=== PATIENT | female | born 1965 | race African-American/Black ===

== ENCOUNTER 2016-11-24 16:57 | Emergency (ER) | payer OTHER ==
[~2016-11-24] VITALS: Ht 162.6 cm; Wt 73.9 kg
--- NOTE | 2016-11-24 18:34 | EKG ---
[facility] [address] [place] [address] Test Date: 2016-11-24 Test Time: 17:43:01 Pat Name: ESTEFANIA HAILE Department: Room: Gender: F Restaurant Service Manager: : 1965 Requested By: OSBALDO LUONG Order Number: [id number] Reading MD: Leoncio Garcia Measurements Intervals [place] Rate: 92 P: 16 AL: 144 QRS: 16 QRSD: 84 T: 32 QT: 342 QTc: 428 Interpretive Statements SINUS RHYTHM QRS(T) CONTOUR ABNORMALITY CANNOT RULE OUT ANTEROSEPTAL MYOCARDIAL DAMAGE RI6.01 Unconfirmed report Compared to ECG 07/06/2015 14:30:15 No significant changes Electronically Signed On 11-25-2016 15:05:45 CDT by Leoncio Garcia
[2016-11-24 18:41] LABS: BASO # 0.1 x10^3/uL (0.0-0.2); BASO % 2 % (0-3); EOS % 1 % (0-3); HEMATOCRIT 35.7 % (36.0-47.0); HEMOGLOBIN 11.7 g/dL (12.0-15.5); LYMPH % 32 % (24-48); MEAN CORPUSCULAR HEMOGLOBIN 28 pg (25-35); MEAN CORPUSCULAR HGB CONC 33 g/dL (31-37); MEAN CORPUSCULAR VOLUME 86 fL (79-100); MONO % 7 % (0-9); NEUT % 59 % (31-73); PLATELET COUNT 315 x10^3/uL (140-400); RED BLOOD COUNT 4.14 x10^6/uL (3.50-5.40); RED CELL DISTRIBUTION WIDTH 13.7 % (11.5-14.5); WHITE BLOOD COUNT 9.4 x10^3/uL (4.0-11.0)
[2016-11-24 18:59] LABS: CALCIUM 9.9 mg/dL (8.5-10.1); CREATININE 0.9 mg/dL (0.6-1.0); GFR 79.3; POTASSIUM 3.6 mmol/L (3.5-5.1)
[2016-11-24] MEDS ORDERED: IV NORMAL SALINE 1000ML BAG 1,000 ML IV SCH (19:00)
[2016-11-24] MEDS ORDERED: hydrALAZINE 20 MG/ML VIAL. IVP ONE (19:00)
[2016-11-24 19:04] LABS: ALBUMIN 4.3 g/dL (3.4-5.0); ALBUMIN/GLOBULIN RATIO 0.9 (1.0-1.7); MAGNESIUM 1.9 mg/dL (1.8-2.4); TOTAL BILIRUBIN 0.2 mg/dL (0.2-1.0); TOTAL PROTEIN 8.9 g/dL (6.4-8.2)
[2016-11-24 19:08] LABS: BILIRUBIN,URINE NEGATIVE (NEG); GLUCOSE,URINE NEGATIVE (NEG); NITRITE,URINE NEGATIVE (NEG); PH,URINE 5.5; PROTEIN,URINE NEGATIVE (NEG-TRACE); UROBILINOGEN,URINE 0.2 mg/dL (0.2 mg/dL)
[2016-11-24 19:28] LABS: BACTERIA,URINE FEW /HPF (0-FEW); RBC,URINE 0 /HPF (0-2); SQUAMOUS EPITHELIAL CELL,UR FEW /LPF
[2016-11-24 20:34] VITALS: BP 170/82
[2016-11-24] MEDS ORDERED: TRAM50TA PO (20:37)
--- NOTE | 2016-11-24 20:37 | PHYS DOC ---
Past Medical History Past Medical History: Arthritis, Diabetes-Type II, Hypertension Additional Past Medical Histor: Sinus trouble, tension headaches Past Surgical History: No Surgical History Additional Past Surgical Histo: Fibroid cysts taken from ovaries Alcohol Use: None Drug Use: None Adult General Chief Complaint Chief Complaint: DIZZY/LIGHT HEADED HPI HPI Patient is a 51 year old female who presents with complaint of dizziness, headache, and high blood pressure. The patient is a difficult historian as she originally stated that she was having trouble for the past 3 days during triage , however patient states that this has been going on for 2 weeks. Patient states that she has also been having difficulty with dental pain and has been following with a dentist for treatment. Patient states that she was placed on clindamycin and hydrocodone 10 mg. Patient stated that she was having difficulty with "hallucinations" and thus stopped the antibiotic as she thought this was causing her symptoms. The patient states that she is on lisinopril and amlodipine at home for treatment of high blood pressure. Patient follows a Dr. Pressley for primary care. Patient has not missed any doses of her medication. Patient is concerned because her blood pressure has been running high. Patient rates her pain currently as 8 out of 10 in her and 5 out of 10 in her head. Patient denies any unilateral weakness, vision changes, vomiting. Patient states that she has had some numbness in her right upper extremity after accidentally hitting her shoulder up against a door but denies any loss of use of the extremity. Review of Systems Review of Systems Constitutional: Lightheadedness, denies fever or chills [] Eyes: Denies change in visual acuity, redness, or eye pain [] HENT: Denies nasal congestion or sore throat [] Respiratory: Denies cough or shortness of breath [] Cardiovascular: Denies chest pain or edema [] GI: Denies abdominal pain, nausea, vomiting, bloody stools or diarrhea [] : Denies dysuria or hematuria [] Musculoskeletal: Denies back pain or joint pain [] Integument: Denies rash or skin lesions [] Neurologic: Headache, denies focal weakness [] Current Medications Current Medications Current Medications Medications (Trade) Dose Ordered Sig/Stephan Start Time Stop Time Status Last Admin Dose Admin Diazepam (Valium) 2 mg 1X ONCE 11/24/16 19:00 11/24/16 19:01 DC 11/24/16 19:19 2 MG Hydralazine HCl (Apresoline) 10 mg 1X ONCE 11/24/16 19:00 11/24/16 19:01 DC 11/24/16 19:16 10 MG Sodium Chloride 1,000 ml @ 1,000 mls/hr Q1H 11/24/16 19:00 11/24/16 19:59 DC 11/24/16 19:15 1,000 MLS/HR Allergies Allergies Allergies Coded Allergies Type Severity Reaction Last Updated Verified ibuprofen Allergy Intermediate Rash 07/06/15 Yes Physical Exam Physical Exam Constitutional: Alert, afebrile, no acute distress. [] HENT: Normocephalic, atraumatic, bilateral external ears normal, oropharynx moist, no oral exudates, nose normal. [] Eyes: PERRLA, EOMI, conjunctiva normal, no discharge. [] Neck: Normal range of motion, no tenderness, supple, no stridor. [] Cardiovascular:Heart rate regular rhythm, no murmur [] Lungs & Thorax: Bilateral breath sounds clear to auscultation [] Abdomen: Bowel sounds normal, soft, no tenderness, no masses, no pulsatile masses. [] Skin: Warm, dry, no erythema, no rash. [] Back: No tenderness, no CVA tenderness. [] Extremities: No tenderness, no cyanosis, no clubbing, ROM intact, no edema. [] Neurologic: Alert and oriented X 3, normal motor function, normal sensory function, no focal deficits noted. [] Current Patient Data Vital Signs Vital Signs Date Time Temp Pulse Resp B/P (MAP) Pulse Ox O2 Delivery O2 Flow Rate FiO2 11/24/16 20:34 106 170/82 (111) 99 Room Air 11/24/16 17:40 98.0 22 98.0 Lab Values Laboratory Tests Test 11/24/16 17:52 11/24/16 18:30 11/24/16 18:55 Glucose (Fingerstick) 108 mg/dL (70-99) H White Blood Count 9.4 x10^3/uL (4.0-11.0) Red Blood Count 4.14 x10^6/uL (3.50-5.40) Hemoglobin 11.7 g/dL (12.0-15.5) L Hematocrit 35.7 % (36.0-47.0) L Mean Corpuscular Volume 86 fL (79-100) Mean Corpuscular Hemoglobin 28 pg (25-35) Mean Corpuscular Hemoglobin Concent 33 g/dL (31-37) Red Cell Distribution Width 13.7 % (11.5-14.5) Platelet Count 315 x10^3/uL (140-400) Neutrophils (%) (Auto) 59 % (31-73) Lymphocytes (%) (Auto) 32 % (24-48) Monocytes (%) (Auto) 7 % (0-9) Eosinophils (%) (Auto) 1 % (0-3) Basophils (%) (Auto) 2 % (0-3) Neutrophils # (Auto) 5.5 x10^3uL (1.8-7.7) Lymphocytes # (Auto) 3.0 x10^3/uL (1.0-4.8) Monocytes # (Auto) 0.6 x10^3/uL (0.0-1.1) Eosinophils # (Auto) 0.1 x10^3/uL (0.0-0.7) Basophils # (Auto) 0.1 x10^3/uL (0.0-0.2) Sodium Level 140 mmol/L (136-145) Potassium Level 3.6 mmol/L (3.5-5.1) Chloride Level 102 mmol/L (98-107) Carbon Dioxide Level 24 mmol/L (21-32) Anion Gap 14 (6-14) Blood Urea Nitrogen 8 mg/dL (7-20) Creatinine 0.9 mg/dL (0.6-1.0) Estimated GFR (Cockcroft-Gault) 79.3 BUN/Creatinine Ratio 9 (6-20) Glucose Level 163 mg/dL (70-99) H Calcium Level 9.9 mg/dL (8.5-10.1) Magnesium Level 1.9 mg/dL (1.8-2.4) Total Bilirubin 0.2 mg/dL (0.2-1.0) Aspartate Amino Transferase (AST) 22 U/L (15-37) Alanine Aminotransferase (ALT) 33 U/L (14-59) Alkaline Phosphatase 76 U/L (46-116) Total Protein 8.9 g/dL (6.4-8.2) H Albumin 4.3 g/dL (3.4-5.0) Albumin/Globulin Ratio 0.9 (1.0-1.7) L Urine Collection Type Void Urine Color Yellow Urine Clarity Clear Urine pH 5.5 Urine Specific [place] <=1.005 Urine Protein Negative mg/dL (NEG-TRACE) Urine Glucose (UA) Negative mg/dL (NEG) Urine Ketones (Stick) Negative mg/dL (NEG) Urine Blood Negative (NEG) Urine Nitrite Negative (NEG) Urine Bilirubin Negative (NEG) Urine Urobilinogen Dipstick 0.2 mg/dL (0.2 mg/dL) Urine Leukocyte Esterase Trace (NEG) Urine RBC 0 /HPF (0-2) Urine WBC 1-4 /HPF (0-4) Urine Squamous Epithelial Cells Few /LPF Urine Bacteria Few /HPF (0-FEW) Urine Mucus Slight /LPF Laboratory Tests 11/24/16 18:30 Laboratory Tests 11/24/16 18:30 EKG EKG Interpreted by me: Heart rate 92, sinus rhythm, normal intervals, normal axis, no acute ST/T-wave abnormalities present [] Radiology/Procedures Radiology/Procedures One view AP chest x-ray interpreted by me: No infiltrate, no effusions, normal cardiac silhouette [] Course & Med Decision Making Course & Med Decision Making Pertinent Labs and Imaging studies reviewed. (See chart for details) Patient was given Valium and hydralazine in the emergency department. On reevaluation, patient's blood pressure has improved to 160 systolic and patient states that she feels better at this time. The patient shows no evidence of gingival or mandibular swelling. After speaking with the patient, I explained that I suspected part of her adverse symptoms to medication may have been related to hydrocodone instead of clindamycin as she was on high-dose hydrocodone 10 mg. The patient stated that this did make sense to her. After discussing with her we will prescribe tramadol to help with patient's dental pain and advised to continue follow-up with her dentist. Also recommended follow -up in the next 3 days with the patient's primary doctor for reevaluation of blood pressure. Advised return emergency department for any worsening symptoms. Patient voiced understanding and in agreement with treatment plan. Dragon Disclaimer Dragon Disclaimer This electronic medical record was generated, in whole or in part, using a voice recognition dictation system. Departure Departure Impression: Primary Impression: Accelerated essential hypertension Additional Impression: Pain, dental Disposition: HOME, SELF-CARE Condition: IMPROVED Referrals: JEYSON PRESSLEY MD (PCP) Patient Instructions: Dental Pain, Hypertension Additional Instructions: Follow-up with Dr. Pressley in the next 3-5 days for reevaluation. Return to the emergency department for any worsening symptoms. Scripts Tramadol Hcl (TRAMADOL HCL) 50 Mg Tablet 1 TAB PO PRN Q6HRS Y for PAIN, #30 TAB Prov: OSBALDO LUONG MD 11/24/16 Problem Qualifiers OSBALDO LUONG MD Nov 24, 2016 20:37
--- NOTE | 2016-11-25 09:31 | RAD ---
Indication dizzy and weakness. Protocol study. A single view of the chest was obtained. No prior plain film imaging of the chest is available. The heart and pulmonary vessels appear normal. The lungs are clear. There is no pleural fluid or pneumothorax. Inspiratory effort is not optimal. The visualized bony structures appear grossly intact. IMPRESSION:: No acute or focal process is seen in the chest
== END 2016-11-24 20:59 | disposition home or self-care (01) ==
LOC: ER 16:57
DX: I10 Essential (primary) hypertension (principal); K08.89 Other specified disorders of teeth and supporting structures; R20.0 Anesthesia of skin; E11.9 Type 2 diabetes mellitus without complications; M19.90 Unspecified osteoarthritis, unspecified site; Z88.6 Allergy status to analgesic agent; Z79.899 Other long term (current) drug therapy
CPT/HCPCS: 36415; 71010; 80053; 81001; 82962; 83735; 85027; 87086; 93005; 96361; 96374; 96375; 99285; J0360; J3360; J7030

== ENCOUNTER 2018-02-27 10:19 | Emergency (ER) | payer OTHER ==
[~2018-02-27] VITALS: Ht 162.6 cm; Wt 70.3 kg
[~2018-02-27 10:19] MED LIST: TRAM50TA PO
[2018-02-27 10:30] VITALS: BP 196/95
--- NOTE | 2018-02-27 11:13 | PHYS DOC ---
Past Medical History Past Medical History: Arthritis, Diabetes-Type II, Hypertension, Other Additional Past Medical Histor: Sinus trouble, tension headaches Past Surgical History: Other Additional Past Surgical Histo: Fibroid cysts taken from ovaries Alcohol Use: None Drug Use: None Adult General Chief Complaint Chief Complaint: MULTIPLE COMPLAINTS [facility] Patient is a 52 year old female who presents with multiple complaints. The patient states that her primary complaint today is for dental pain. She has been diagnosed with gum disease and is currently being treated. She states that she did not take the clindamycin that she was prescribed as it made her ill. She also has complaints of arthritis for which she takes Naprosyn and has been having constipation for which she has been told by her primary care provider to take MiraLAX. She states the MiraLAX is not working. I encouraged her to increase her dose from once a day to 3 times a day until she is able to have normal bowel movements. If the MiraLAX does not induce bowel movement she should graduate up to something like magnesium citrate. She does have a follow- up appointment scheduled with her dentist. She states that she has had work done already by [facility] and plans on going back there for continued dental therapy. Review of Systems Review of Systems Constitutional: Denies fever or chills [] Eyes: Denies change in visual acuity, redness, or eye pain [] HENT: See history of present illness Respiratory: Denies cough or shortness of breath [] Cardiovascular: No additional information not addressed in [facility] [] GI: See history of present illness : Denies dysuria or hematuria [] Musculoskeletal: See history of present illness Integument: Denies rash or skin lesions [] Neurologic: Denies headache, focal weakness or sensory changes [] Endocrine: Denies polyuria or polydipsia [] All other systems were reviewed and found to be within normal limits, except as documented in this note. Allergies Allergies Allergies Coded Allergies Type Severity Reaction Last Updated Verified ibuprofen Allergy Intermediate Rash 07/06/15 Yes Physical Exam Physical Exam Constitutional: Well developed, well nourished, no acute distress, non-toxic appearance. [] HENT: Normocephalic, atraumatic, bilateral external ears normal, mild erythema to gumline, no oral exudates, nose normal. [] Eyes: PERRLA, EOMI, conjunctiva normal, no discharge. [] Neck: Normal range of motion, no tenderness, supple, no stridor. [] Cardiovascular:Heart rate regular rhythm, no murmur [] Lungs & Thorax: Bilateral breath sounds clear to auscultation [] Abdomen: Bowel sounds normal, soft, no tenderness, no masses, no pulsatile masses. [] Skin: Warm, dry, no erythema, no rash. [] Back: No tenderness, no CVA tenderness. [] Extremities: No tenderness, no cyanosis, no clubbing, ROM intact, no edema. [] Neurologic: Alert and oriented X 3, normal motor function, normal sensory function, no focal deficits noted. [] Psychologic: Affect normal, judgement normal, mood normal. [] Current Patient Data Vital Signs Vital Signs Date Time Temp Pulse Resp B/P (MAP) Pulse Ox O2 Delivery O2 Flow Rate FiO2 02/27/18 10:30 98.0 87 18 196/95 (128) 99 Room Air 98.0 EKG EKG [] Radiology/Procedures Radiology/Procedures [] Course & Med Decision Making Course & Med Decision Making Pertinent Labs and Imaging studies reviewed. (See chart for details) []The patient and I had a long conversation about following up with her primary care provider if her current therapy is not working. She states that she will talk to Dr. Pressley about her arthritis and her constipation. She has been switched to amoxicillin since the clindamycin was making her ill. She is to follow-up with the dentist. She is in agreement with this plan. Dragon Disclaimer Dragon Disclaimer This electronic medical record was generated, in whole or in part, using a voice recognition dictation system. Departure Departure Impression: Primary Impression: Dental infection Disposition: 01 HOME, SELF-CARE Condition: STABLE Referrals: JEYSON PRESSLEY MD (PCP) Patient Instructions: Dental Pain Additional Instructions: Follow up with your dentist to continue your treatment. Follow-up with your primary care provider for your other multiple healthcare needs such as arthritis and constipation. If worsening return to the emergency department. Take the antibiotic as directed. Continue your at home medications. Scripts Amoxicillin (AMOXICILLIN) 875 Mg Tablet 1 TAB PO BID for infection, #20 TAB Prov: BHARGAV DAVIS APRN 02/27/18 BHARGAV DAVIS APRN Feb 27, 2018 11:13
[2018-02-27] MEDS ORDERED: AMOX875T PO (11:30)
== END 2018-02-27 11:22 | disposition home or self-care (01) ==
LOC: ER 10:19
DX: K04.7 Periapical abscess without sinus (principal); M19.90 Unspecified osteoarthritis, unspecified site; E11.9 Type 2 diabetes mellitus without complications; I10 Essential (primary) hypertension; K59.00 Constipation, unspecified; Z88.6 Allergy status to analgesic agent
CPT/HCPCS: 99283

== ENCOUNTER 2018-11-03 14:38 | Emergency (ER) | payer MEDICAID, OTHER ==
[~2018-11-03] VITALS: Ht 162.6 cm; Wt 77.1 kg
[~2018-11-03 14:38] MED LIST changes: +AMOX875T PO
[2018-11-03 15:34] LABS: BILIRUBIN,URINE NEGATIVE (NEG); CLARITY,URINE CLOUDY; COLOR,URINE YELLOW; NITRITE,URINE POSITIVE (NEG); PH,URINE 5.5; PROTEIN,URINE 100 mg/dL (NEG-TRACE); UROBILINOGEN,URINE 0.2 mg/dL (0.2 mg/dL)
--- NOTE | 2018-11-03 15:38 | RAD ---
Examination: Supine and upright views of the abdomen HISTORY: History of constipation COMPARISON: None available. FINDINGS: Large amount of stool identified in the colon particularly in the right colon. Nonspecific bowel gas pattern. IMPRESSION: Large amount of stool identified in the colon. Correlate for constipation. Electronically signed by: Mack Valentin MD (11/03/2018 3:35 PM) [facility]
[2018-11-03 15:39] LABS: BARBITURATES NEG (NEG); BENZODIAZEPINES NEG (NEG); CANNABINOIDS NEG (NEG); COCAINE NEG (NEG); METHADONE NEG (NEG); OPIATES NEG (NEG); PHENCYCLIDINE NEG (NEG)
[2018-11-03 15:42] LABS: AMPHETAMINE/METHAMPHETAMINE NEG (NEG)
[2018-11-03 15:44] LABS: BACTERIA,URINE MANY /HPF (0-FEW); SQUAMOUS EPITHELIAL CELL,UR FEW /LPF; WBC,URINE TNTC /HPF (0-4)
[2018-11-03] MEDS ORDERED: MAGNESIUM CITRATE 296 ML SOLUTION. PO ONE (16:00)
[2018-11-03] MEDS ORDERED: ONDA4TAB7 PO (16:14)
[2018-11-03] MEDS ORDERED: SULF1TAB24 PO (16:14)
--- NOTE | 2018-11-03 16:15 | PHYS DOC ---
Past Medical History Past Medical History: Arthritis, Diabetes-Type II, Hypertension, Other Additional Past Medical Histor: Sinus trouble, tension headaches Past Surgical History: Other Additional Past Surgical Histo: Fibroid cysts taken from ovaries Alcohol Use: None Drug Use: None Adult General Chief Complaint Chief Complaint: ABDOMINAL PAIN HPI HPI Patient is a 53 year old female with a history of hypertension, diabetes type 2, who presents to the ED today complaining of constipation for 2 days. Patient states she had a bowel movement this morning but it was hard. She tried taking Dulcolax but she vomited. She states she has history of chronic constipation, sh e states she is scheduled to have a colonoscopy in 2 weeks. Review of Systems Review of Systems Constitutional: Denies fever or chills [] Eyes: Denies change in visual acuity, redness, or eye pain [] HENT: Denies nasal congestion or sore throat [] Respiratory: Denies cough or shortness of breath [] Cardiovascular: No additional information not addressed in HPI [] GI: Reports constipation. Reports vomiting. Denies, bloody stools or diarrhea [] : Denies dysuria or hematuria [] Musculoskeletal: Denies back pain or joint pain [] Integument: Denies rash or skin lesions [] Neurologic: Denies headache, focal weakness or sensory changes [] All other systems were reviewed and found to be within normal limits, except as documented in this note. Current Medications Current Medications Current Medications Medications (Trade) Dose Ordered Sig/[facility] Start Time Stop Time Status Last Admin Dose Admin Magnesium Citrate (Citroma) 296 ml 1X ONCE 11/03/18 16:00 11/03/18 16:01 DC Allergies Allergies Allergies Coded Allergies Type Severity Reaction Last Updated Verified ibuprofen Allergy Intermediate Rash 07/06/15 Yes Physical Exam Physical Exam Constitutional: Well developed, well nourished, no acute distress, non-toxic appearance. [] HENT: Normocephalic, atraumatic, bilateral external ears normal, oropharynx moist, no oral exudates, nose normal. [] Eyes: PERRLA, EOMI, conjunctiva normal, no discharge. [] Neck: Normal range of motion, no tenderness, supple, no stridor. [] Cardiovascular:Heart rate regular rhythm, no murmur [] Lungs & Thorax: Bilateral breath sounds clear to auscultation [] Abdomen: Bowel sounds normal, soft, no tenderness, no masses, no pulsatile masses. [] Skin: Warm, dry, no erythema, no rash. [] Back: No tenderness, no CVA tenderness. [] Extremities: No tenderness, no cyanosis, no clubbing, ROM intact, no edema. [] Neurologic: Alert and oriented X 3, normal motor function, normal sensory function, no focal deficits noted. [] Psychologic: Affect normal, judgement normal, mood normal. [] Current Patient Data Vital Signs Vital Signs Date Time Temp Pulse Resp B/P (MAP) Pulse Ox O2 Delivery O2 Flow Rate FiO2 11/03/18 14:50 98.6 104 18 143/87 (105) 97 Room Air 98.6 Lab Values Laboratory Tests Test 11/03/18 14:42 Urine Collection Type Unknown Urine Color Yellow Urine Clarity Cloudy Urine pH 5.5 Urine Specific [place] 1.015 Urine Protein 100 mg/dL (NEG-TRACE) Urine Glucose (UA) Negative mg/dL (NEG) Urine Ketones (Stick) Negative mg/dL (NEG) Urine Blood Small (NEG) Urine Nitrite Positive (NEG) Urine Bilirubin Negative (NEG) Urine Urobilinogen Dipstick 0.2 mg/dL (0.2 mg/dL) Urine Leukocyte Esterase Large (NEG) Urine RBC 6-10 /HPF (0-2) Urine WBC Tntc /HPF (0-4) Urine Squamous Epithelial Cells Few /LPF Urine Bacteria Many /HPF (0-FEW) Urine Mucus Marked /LPF Urine Opiates Screen Neg (NEG) Urine Methadone Screen Neg (NEG) Urine Barbiturates Neg (NEG) Urine Phencyclidine Screen Neg (NEG) Urine Amphetamine/Methamphetamine Neg (NEG) Urine Benzodiazepines Screen Neg (NEG) Urine Cocaine Screen Neg (NEG) Urine Cannabinoids Screen Neg (NEG) Urine Ethyl Alcohol Neg (NEG) EKG EKG [] Radiology/Procedures Radiology/Procedures []PROCEDURE: ABDOMEN SUPINE & UPRIGHT Examination: Supine and upright views of the abdomen HISTORY: History of constipation COMPARISON: None available. FINDINGS: Large amount of stool identified in the colon particularly in the right colon. Nonspecific bowel gas pattern. IMPRESSION: Large amount of stool identified in the colon. Correlate for constipation. Electronically signed by: Mack Valentin MD (11/03/2018 3:35 PM) [facility] DICTATED and SIGNED BY: MCAK VALENTIN MD DATE: 11/03/18 1535 Course & Med Decision Making Course & Med Decision Making Pertinent Labs and Imaging studies reviewed. (See chart for details) This is a 53-year-old female patient presenting to the ED today complaining of constipation for 2 days, history of chronic constipation. Tried Dulcolax but vomited at home. Abdominal x-ray noted for-Large amount of stool identified in the colon. Patient was given mag citrate in the ED, discharged to home instructed to take mag citrate every day until he has a bowel movement. MiraLAX also recommended. Zofran rx provided. She has a colonoscopy in 2 weeks. Follow-up with her own GI doctor in the course of this week or next week. Urine noted for UTI, discharged on Bactrim. Dragon Disclaimer Dragon Disclaimer This electronic medical record was generated, in whole or in part, using a voice recognition dictation system. Departure Departure Impression: Primary Impression: Constipation Disposition: HOME, SELF-CARE Condition: STABLE Referrals: JEYSON RAMIREZ MD (PCP) Follow-up in the course of this week, also follow-up with your GI doctor. Patient Instructions: Constipation, Adult Additional Instructions: You were evaluated in the emergency room for constipation. We recommend you increase your dietary fiber intake as well as a water intake. Take magnesium citrate every daily for three days, stop when you have a normal bowel movement. Take MiraLAX every day to prevent constipation. Scripts Ondansetron Hcl (ZOFRAN) 4 Mg Tablet 1 TAB PO Q6HRS, #20 TAB Prov: ENOC RUFFIN APRN 11/03/18 Sulfamethoxazole/Trimethoprim (BACTRIM DS TABLET) 1 Each Tablet 1 TAB PO BID, #14 TAB Prov: ENOC RUFFIN APRN 11/03/18 Problem Qualifiers Primary Impression: Constipation Constipation type: unspecified constipation type Qualified Codes: K59.00 - Constipation, unspecified ENOC RUFFIN APRN Nov 03, 2018 16:15
[2018-11-03 16:35] VITALS: BP 143/87
== END 2018-11-03 16:40 | disposition home or self-care (01) ==
LOC: ER 14:38
DX: K59.00 Constipation, unspecified (principal); I10 Essential (primary) hypertension; E11.9 Type 2 diabetes mellitus without complications; Z88.8 Allergy status to other drugs, medicaments and biological substances
CPT/HCPCS: 74021; 80307; 81001; 99285-25

== ENCOUNTER → 2018-11-13 | Day surgery (SDC) | payer OTHER ==
[~2018-11-13] MED LIST changes: +AMLO5TAB10 PO; +HYDROmorphone 2 MG/ML VIAL IV PRN; +IV RINGERS,LACTATED 1000ML 1,000 ML IV SCH; +LISI10TA2 PO; +METF500T16 PO; +MORPHINE SULFATE 2 MG/ML VIAL. IV PRN; +NAPR-514 PO; +ONDA4TAB7 PO; +ONDANSETRON PF 4 MG/2 ML VIAL. IV PRN; +PROCHLORPERAZINE 10 MG/2 ML VIAL. IV PRN; +PROPOFOL 20 ML IV ONE; +SULF1TAB24 PO; +fentaNYL PF VIAL 100 MCG/2 ML VIAL IV PRN
[2018-11-13 09:30] VITALS: BP 122/78
== END ==
LOC: ENDOS 07:54
PROVIDERS: ATTEND Internal Medicine Gastroenterology
DX: Z12.11 Encounter for screening for malignant neoplasm of colon (principal); K64.0 First degree hemorrhoids; K63.89 Other specified diseases of intestine; E11.9 Type 2 diabetes mellitus without complications; I10 Essential (primary) hypertension; Z88.6 Allergy status to analgesic agent; Z88.3 Allergy status to other anti-infective agents; Z79.84 Long term (current) use of oral hypoglycemic drugs
CPT/HCPCS: 45378; J2704